=== PATIENT | female | born 2000 | race Caucasian/White ===

== ENCOUNTER 2020-11-11 15:02 | Emergency (ER) | payer OTHER ==
[~2020-11-11] VITALS: Ht 167.6 cm; Wt 77.1 kg
[2020-11-11 15:13] VITALS: BP 105/76
--- NOTE | 2020-11-11 15:30 | NUR ---
20 YEAR OLD FEMALE COMPLAINS OF HEADACHE, NAUSEA, VOMITTING X 3 DAYS. PT DENIES BLOOD IN VOMIT. PT STATES SHE FEELS LIKE SHE IS GOING TO PASS OUT, BUT DENIES LOC. PT AOX4, BREATHING EVEN AND UNLABORED, SKIN WARM AND DRY. BED IN LOWEST POSITION, LOCKED, BED RAIL UPX1. PMH - DENIES ALLERGIES - NKA
[2020-11-11] MEDS ORDERED: ONDANSETRON 4 MG/2 ML VIAL IVP ONE (15:35)
[2020-11-11] MEDS ORDERED: NACL 0.9% 500 ML IV ONE (15:35)
[2020-11-11] MEDS ORDERED: ONDA4TAB PO (16:10)
[2020-11-11] MEDS ORDERED: IBUP-2213 PO (16:10)
[2020-11-11] MEDS ORDERED: NITR100C7 PO (16:10)
--- NOTE | 2020-11-11 16:30 | NUR ---
Patient discharged with v/s stable. Written and verbal after care instructions about UTI, vomit, headache given and explained. Patient alert, oriented and verbalized understanding of instructions. Ambulatory with steady gait. All questions addressed prior to discharge. ID band removed. Patient advised to follow up with PMD. Rx of macrobid, ibuprofen, zofran given. Patient educated on indication of medication including possible reaction and side effects. Opportunity to ask questions provided and answered.
[2020-11-11 16:31] VITALS: BP 105/76
== END 2020-11-11 16:30 | disposition home or self-care (01) ==
LOC: MED 15:02
DX: N39.0 Urinary tract infection, site not specified (principal); R51.9 Headache, unspecified; R11.10 Vomiting, unspecified; Z79.899 Other long term (current) drug therapy
CPT/HCPCS: 81002; 81025; 87086; 96361; 96374; 99283; J2405; J7030